=== PATIENT | male | born 1985 | race Caucasian/White ===

== ENCOUNTER 2025-01-21 15:43 | Emergency (ER) | payer MEDICAID, OTHER ==
[~2025-01-21] VITALS: Ht 157.5 cm; Wt 65.9 kg
[~2025-01-21 15:43] MED LIST: METH10 PO
[2025-01-21 15:50] VITALS: BP 122/65; PULSE 98; RESP 18; TEMP 98.4; O2SAT 98
[2025-01-21 15:56] LABS: COVID AG,FIA SOURCE NASAL SWAB
[2025-01-21 16:17] LABS: INFLUENZA TYPE A NEGATIVE FOR TYPE A (NEGATIVE); INFLUENZA TYPE B NEGATIVE FOR TYPE B (NEGATIVE); SARS-COV2 (COVID) ANTIGEN,FIA Negative (Negative)
[2025-01-21] MEDS ORDERED: IBUP-1492 PO (18:27)
[2025-01-21] MEDS ORDERED: ACET-3385 PO (18:27)
[2025-01-21] MEDS ORDERED: BENZ-227 PO (18:35)
[2025-01-21] MEDS: OXYMETAZOLINE HCL 0.05% 15 ML NASAL SPRAY NASAL ONE (18:41)
[2025-01-21] MEDS: ACETAMINOPHEN 500 MG TABLET PO ONE (18:42)
== END 2025-01-21 18:43 | disposition home or self-care (01) ==
LOC: EMS 15:43
DX: J06.9 Acute upper respiratory infection, unspecified (principal); F20.9 Schizophrenia, unspecified; F10.90 Alcohol use, unspecified, uncomplicated; F15.90 Other stimulant use, unspecified, uncomplicated; Z20.822 Contact with and (suspected) exposure to COVID-19
CPT/HCPCS: 87804; 99283